=== PATIENT | male | born 1965 | race Caucasian/White ===

== ENCOUNTER 2017-11-30 17:17 | Emergency (ER) | payer OTHER ==
[~2017-11-30] VITALS: Ht 170.1 cm; Wt 77.1 kg
[2017-11-30 17:20] VITALS: BP 156/91
[2017-11-30] MEDS ORDERED: Motrin,Rufen800 MG PO (19:10)
[2017-11-30] MEDS ORDERED: CYCLOBENZAPRINE5 M3 PO (19:10)
== END 2017-11-30 19:18 | disposition home or self-care (01) ==
LOC: ED 17:17 → EDHOLD 18:29 → ED 18:29
DX: S39.012A Strain of muscle, fascia and tendon of lower back, initial encounter (principal); V48.5XXA Car driver injured in noncollision transport accident in traffic accident, initial encounter; Y93.89 Activity, other specified; Y92.413 State road as the place of occurrence of the external cause; Y99.8 Other external cause status

== ENCOUNTER 2018-03-12 19:14 | Emergency (ER) | payer OTHER ==
[~2018-03-12] VITALS: Ht 170.1 cm; Wt 77.1 kg
[~2018-03-12 19:14] MED LIST: CYCLOBENZAPRINE5 M3 PO; Motrin,Rufen800 MG PO
[2018-03-12 20:08] LABS: BASO % 0.6 % (0.0-1.0); EOS % 0.6 % (1.0-4.0); HEMATOCRIT 40.2 % (42.0-52.0); HEMOGLOBIN 13.8 g/dl (14.0-18.0); LYMPH % 20.6 % (27.0-41.0); MEAN CELL VOLUME 104.7 fl (80.0-94.0); MEAN CORPUSCULAR HGB 35.9 pg (27.0-31.0); MEAN CORPUSCULAR HGB CONC 34.3 g/dl (33.0-37.0); MEAN PLATELET VOLUME 11.1 fl (9.6-12.3); MONO # 0.7 10*3/uL (0.1-1.0); MONO % 15.2 % (3.0-9.0); NEUT % 62.8 % (47.0-73.0); PLATELET COUNT AUTOMATED 95 10*3/uL (130-400); RED BLOOD COUNT 3.84 10*6/uL (4.50-5.90); RED CELL DISTRI WIDTH 14.4 % (0-14.5); WHITE BLOOD COUNT 4.8 10*3/uL (4.8-10.8)
[2018-03-12 20:27] LABS: ALBUMIN 3.8 gm/dl (3.1-4.5); ALKALINE PHOSPHATASE 193 U/L (45-117); BUN 6 mg/dl (7-24); CHLORIDE 98 mmol/L (98-107); CPK 178 U/L (39-308); CREATININE 0.87 mg/dL (0.70-1.30); LIPASE 147 U/L (73-393); POTASSIUM 3.6 mmol/L (3.5-5.1); SGOT/AST 97 IU/L (3-35); SGPT/ALT 43 U/L (12-78); SODIUM 133 mmol/L (136-145); TOTAL PROTEIN 7.9 gm/dL (6.4-8.2)
[2018-03-12 20:28] LABS: BILIRUBIN NEGATIVE (NEGATIVE); BLOOD NEGATIVE (NEGATIVE); CLARITY CLEAR (CLEAR); COLOR YELLOW (YELLOW); GLUCOSE NEGATIVE (NEGATIVE); KETONE NEGATIVE (NEGATIVE); LEUKO ESTERASE NEGATIVE (NEGATIVE); NITRITE NEGATIVE (NEGATIVE); PH 6.5 (5.0-9.0); SPECIFIC GRAVITY <= 1.005 (1.005-1.030); UROBILINOGEN 0.2 E.U./dl (0.2-1.0)
[2018-03-12 20:29] LABS: CKMB 0.9 ng/ml (0.5-3.6)
[2018-03-12 20:32] LABS: TROPONIN I < 0.015 ng/ml (<0.045)
[2018-03-12 20:39] LABS: WBC 0-2 wbc/hpf (0-5)
== END 2018-03-12 21:41 | disposition home or self-care (01) ==
LOC: ED 19:14
PROVIDERS: Nurse Practitioner Family
DX: E86.0 Dehydration (principal); R25.2 Cramp and spasm

== ENCOUNTER 2020-07-23 21:32 | Inpatient (IN) | payer OTHER ==
[~2020-07-23] VITALS: Ht 170.1 cm; Wt 88.0 kg
[2020-07-23 21:48] VITALS: BP 143/90
--- NOTE | 2020-07-23 22:42 | NUR ---
PT ADDS THAT HE IS HAVING HALLUCINATIONS AT THIS TIME. STATES THAT HE IS SEEING ANTS.
[2020-07-23 23:24] LABS: HEMATOCRIT 30.5 % (42.0-52.0); MEAN CELL VOLUME 110.1 fl (80.0-94.0); MEAN CORPUSCULAR HGB CONC 35.4 g/dl (33.0-37.0); MEAN PLATELET VOLUME 12.2 fl (9.6-12.3); PLATELET COUNT AUTOMATED 54 10*3/uL (130-400); RED BLOOD COUNT 2.77 10*6/uL (4.50-5.90); RED CELL DISTRI WIDTH 15.8 % (0-14.5); WHITE BLOOD COUNT 4.8 10*3/uL (4.8-10.8)
[2020-07-23 23:45] LABS: ALBUMIN 2.3 gm/dl (3.1-4.5); CREATININE 1.84 mg/dL (0.70-1.30); POTASSIUM 3.1 mmol/L (3.5-5.1)
[2020-07-23 23:53] LABS: BASOPHILS 1 % (0-1); PLATELET SUFFICIENCY LOW (NORMAL); STOMATOCYTE FEW; TOTAL CELLS COUNTED 100 #CELLS; VACUOLATION OF NEUTROPHILS SLIGHT
[2020-07-24] VITALS (10 sets, daily range): BP systolic 80–127; BP diastolic 43–78
[2020-07-24] LABS: TOTAL PROTEIN 6.5 gm/dL (6.4-8.2)
[2020-07-24 00:35] LABS: BILIRUBIN 3+ (Negative); BLOOD Trace-Lysed (Negative); CLARITY Turbid (Clear); COLOR Dark Yellow (Yellow); GLUCOSE Negative (Negative); KETONE Negative (Negative); LEUKO ESTERASE 2+ (Negative); NITRITE Positive (Negative); PH 5.5 (4.5-8.0)
[2020-07-24 00:59] LABS: BACTERIA 3+; WBC TNTC wbc/hpf (0-5)
--- NOTE | 2020-07-24 02:03 | NUR ---
PT GIVEN BOX LUNCH AT THIS TIME. DENIES ANY OTHER NEEDS. WILL CONTINUE TO MONITOR.
--- NOTE | 2020-07-24 02:15 | NUR ---
THIS RN CONTACTED DR MAYNARD ABOUT MEDICATION ORDERS. STATES HE WOULD LIKE MVI BAG GIVEN BEFORE RUNNING KCL. AWAITING NURSE APARTMENT LEASING SPECIALIST TO ARRIVE WITH MEDICATION.
[2020-07-24 02:26] LABS: HEMATOCRIT 29.7 % (42.0-52.0); MEAN CELL VOLUME 110.8 fl (80.0-94.0); MEAN CORPUSCULAR HGB 39.2 pg (27.0-31.0); MEAN CORPUSCULAR HGB CONC 35.4 g/dl (33.0-37.0); MEAN PLATELET VOLUME 13.4 fl (9.6-12.3); PLATELET COUNT AUTOMATED 53 10*3/uL (130-400); RED BLOOD COUNT 2.68 10*6/uL (4.50-5.90); RED CELL DISTRI WIDTH 15.8 % (0-14.5); WHITE BLOOD COUNT 4.7 10*3/uL (4.8-10.8)
[2020-07-24 02:34] LABS: INTERNATIONAL NORM RATIO 1.8 (2.0-3.5)
[2020-07-24 02:45] LABS: BASOPHILS 2 % (0-1); PLATELET SUFFICIENCY LOW (NORMAL); STOMATOCYTE FEW; TOTAL CELLS COUNTED 100 #CELLS; VACUOLATION OF NEUTROPHILS SLIGHT
[2020-07-24 03:05] LABS: ALBUMIN 2.3 gm/dl (3.1-4.5); CREATININE 1.72 mg/dL (0.70-1.30); POTASSIUM 3.5 mmol/L (3.5-5.1)
[2020-07-24 03:13] LABS: TOTAL PROTEIN 6.3 gm/dL (6.4-8.2)
--- NOTE | 2020-07-24 04:00 | NUR ---
ATIVAN PO NOT GIVEN D/T PT BEING SEDATED. PT STATES HE DOES NOT WANT IT AND DOES NOT WANT BOTHERED AT THIS TIME. VSS. AWARE. WILL CONTINUE TO MONITOR.
--- NOTE | 2020-07-24 04:26 | NUR ---
SECOND IV ATTEMPTED.UNABLE TO ESTABLISH SECOND IV SITE AT THIS TIME.PT UNCOOPERATIVE AND REFUSING.
--- NOTE | 2020-07-24 04:35 | NUR ---
AN ATTEMPT TO PLACE A SECOND IV YEILDED UNSUCCESSFUL AT THIS TIME. DR MAYNARD AWARE THAT KCL WILL BE ON HOLD UNTIL MVI BAG IS COMPLETE. PT SELF POSITIONING FOR COMFORT. SAFETY PRECAUTIONS INTACT. CALL LIGHT WITH IN REACH. WILL CONTINUE TO MONITOR.
--- NOTE | 2020-07-24 08:00 | NUR ---
PT AWAKE, ALERT AND ORIENTED. NO STATED COMPLAINTS AT THIS TIME. RESPIRATIONS ARE EASY AND REGULAR ON ROOM AIR. NO SOB NOTED. BED IN LOWEST LOCKED POSITION AND CALL LIGHT WITHIN REACH.
--- NOTE | 2020-07-24 09:00 | NUR ---
MANUAL BLOOD PRESSURE OBTAINED AT THIS TIME. DR. SALINAS IN ROOM AND INFORMED OF BLOOD PRESSURE OF 86/58.
[2020-07-24 10:20] LABS: CREATININE 1.53 mg/dL (0.70-1.30); POTASSIUM 2.6 mmol/L (3.5-5.1)
--- NOTE | 2020-07-24 11:07 | NUR ---
PATIENT FOUND STUMBLING IN ROOM. PT FELL AND HIT HIS HEAD ON THE WALL. CHARGE NURSE, NURSE PHILATELIC CONSULTANT AND DR SALINAS NOTIFIED.
--- NOTE | 2020-07-24 13:14 | NUR ---
FRIEND OF PATIENT CALLED. PATIENT FRIEND GIDEON AND IS IN THE NEXT OF KIN TO SPEAK TO. NOTIFIED HIM THAT PATIENT WAS AWAY FROM HIS ROOM GETTING ADDITIONAL TESTING AT THIS TIME.
--- NOTE | 2020-07-24 13:30 | NUR ---
DR. SANTAMARIA NOTIFIED OF PATIENT'S STATUS. PT STILL ABLE TO ANSWER APPROPRIATELY BUT IS MORE LETHARGIC. DR. SANTAMARIA INTO ROOM.
--- NOTE | 2020-07-24 15:54 | NUR ---
PATIENT DEPENDS HAS BEEN CHANGED AT THIS TIME. NEW ONE PLACED ONTO PATIENT. SHEETS AND BED CHANGED. BED ALARM PLACED BACK ONTO PATIENT. PATIENT RESTING PEACEFULLY IN NO DISTRESS.
--- NOTE | 2020-07-24 18:30 | NUR ---
PATIENT TAKEN TO 5TH FLOOR BY THIS NURSE. NO CHANGE IN STATUS. BEDSIDE REPORT GIVEN TO DANIEL COLMENARES.
--- NOTE | 2020-07-24 18:40 | NUR ---
A 54, admitted to 5E, under the services of MUNDO Clark DO with a diagnosis of UTI,MACROCYTIC ANEMIA,CKD,ELEVATD LIVER FUNCTION ,HPATIC ENCEPAHLOPATHY. Chief complaint is BACK PAIN WHEN 1ST CAME TO ER. Patient arrived via stretcher from ER. Monitor applied. Initial assessment completed. Vital signs taken and recorded. MUNDO CLARK DO notified of admission to the unit. Orders received. See assessment for past medical history, medications and allergies. Patient and/or family oriented to unit. [facility] visitation policy reviewed. Clothing/patient valuable form completed. HEMALATHA TRIPLETT
--- NOTE | 2020-07-24 18:55 | NUR ---
PATIENT NOT ANSWERING QUESTIONS. LR STARTED PER ORDER. PATIENT DROWSY.
[2020-07-24 20:20] LABS: BUN 19 mg/dl (7-24); CHLORIDE 91 mmol/L (98-107); CREATININE 1.15 mg/dL (0.70-1.30); POTASSIUM 2.8 mmol/L (3.5-5.1); SODIUM 127 mmol/L (136-145)
[2020-07-25] VITALS: BP 105/55
--- NOTE | 2020-07-25 07:15 | NUR ---
NOTIFIED DR. MITCHELL OF BASIC RESULTS LAST PM.
[2020-07-25 08:00] VITALS: BP 108/60
--- NOTE | 2020-07-25 08:06 | NUR ---
PATIENT RESTLESS PICKING AT GOWN AND HEART MONITOR DOES NOT FOLLOW COMMANDS.
--- NOTE | 2020-07-25 09:00 | NUR ---
CM in to see patient. He is confused and not able to answer questions appropriately. Will follow up at a later time.
--- NOTE | 2020-07-25 09:05 | NUR ---
Occupational Therapy evaluation received and nurse reports that patient is not appropriated for therapy at this time d/t confusion,reaching in the air for unknown objects, etc. OT will attempt at a later date. Verena Perez OTR/L
--- NOTE | 2020-07-25 09:20 | NUR ---
PHYSICAL THERAPY Pt nimco received and chart reviewed. Attempted to see pt at this time but was disoriented and unable to follow commands. Spoke w primary nurse regarding how pt was doing. Will attempt to see at a later time/date. Jose Alfredo Hernandez SPT Jennifer Hughes PT
[2020-07-25 10:05] LABS: HEMATOCRIT 28.2 % (42.0-52.0); MEAN CELL VOLUME 110.6 fl (80.0-94.0); MEAN CORPUSCULAR HGB 39.2 pg (27.0-31.0); MEAN CORPUSCULAR HGB CONC 35.5 g/dl (33.0-37.0); MEAN PLATELET VOLUME 12.4 fl (9.6-12.3); PLATELET COUNT AUTOMATED 54 10*3/uL (130-400); RED BLOOD COUNT 2.55 10*6/uL (4.50-5.90); RED CELL DISTRI WIDTH 15.6 % (0-14.5)
[2020-07-25 10:22] LABS: ALKALINE PHOSPHATASE 457 U/L (45-117); BUN 15 mg/dl (7-24); CHLORIDE 93 mmol/L (98-107); CREATININE 0.91 mg/dL (0.70-1.30); INTERNATIONAL NORM RATIO 1.8 (2.0-3.5); POTASSIUM 2.9 mmol/L (3.5-5.1); SGOT/AST 390 IU/L (3-35); SGPT/ALT 78 U/L (12-78); SODIUM 131 mmol/L (136-145); TOTAL PROTEIN 5.9 gm/dL (6.4-8.2)
--- NOTE | 2020-07-25 10:45 | NUR ---
Attempted to reach person to notify, Sheron, but the number rings to patient's cell phone. Reached out to next of kin Tolu. Patient lives by himself in a house that has 3 bedrooms. He states the other 2 bedrooms are usually not rented out. If the other 2 bedrooms are rented out everyone shares a bathroom and kitchen. He states he is normally independent in his ADLs and ambulation. He does not have O2 at home. CACHORROK doesn't know who his family doctor is or what pharmacy he uses. He would be able to provide transportation on discharge.
[2020-07-25 10:53] LABS: TOTAL CELLS COUNTED 100 #CELLS
[2020-07-25 10:55] LABS: PLATELET SUFFICIENCY LOW (NORMAL)
[2020-07-25 12:00] VITALS: BP 91/53
--- NOTE | 2020-07-25 15:30 | NUR ---
PATIENT FOUND UNDRESSED HEART MONITOR OFF IV'S PULLED OUT AND BLOOD EVERYWHERE INCLUDING HIS MOUTH. NEW IV SECURED AND KIRLEX,WASHE UP AND CHANGED BED, DR. MITCHELL AWARE AND IN ROOM LOOKING IN PATIENT MOUTH. SOFT WRIST RESTRAINTS APPLIED PER DOCTOR ORDER.
[2020-07-25 15:53] LABS: MEAN CELL VOLUME 111.1 fl (80.0-94.0); MEAN CORPUSCULAR HGB 39.6 pg (27.0-31.0); MEAN CORPUSCULAR HGB CONC 35.7 g/dl (33.0-37.0); MEAN PLATELET VOLUME 12.8 fl (9.6-12.3); PLATELET COUNT AUTOMATED 56 10*3/uL (130-400); RED CELL DISTRI WIDTH 15.9 % (0-14.5); WHITE BLOOD COUNT 4.1 10*3/uL (4.8-10.8)
[2020-07-25 16:00] VITALS: BP 90/58
[2020-07-25 16:14] LABS: PLATELET SUFFICIENCY LOW (NORMAL); ROULEAUX MODERATE; TARGET CELLS FEW; TOTAL CELLS COUNTED 100 #CELLS
--- NOTE | 2020-07-25 17:10 | NUR ---
PATIENT WENT FOR CT AND IS NOW BACK IN ROOM.
[2020-07-25 18:22] LABS: ALBUMIN 2.1 gm/dl (3.1-4.5); BUN 15 mg/dl (7-24); CHLORIDE 94 mmol/L (98-107); CREATININE 0.83 mg/dL (0.70-1.30); POTASSIUM 3.7 mmol/L (3.5-5.1); SODIUM 131 mmol/L (136-145)
[2020-07-25 20:00] VITALS: BP 105/72
--- NOTE | 2020-07-25 20:00 | NUR ---
RESTAINTS IN PLACE PER ORDER. CIRC CHECKS GOOD. FLUIDS OFFERED SPITS OUT. RESTLESS, AGITATED, MOVES ALL OVER BED. ABLE TO GET OUT OF SOFT ARM RESTAINTS.MUMBLES WORDS. WILL CONTINUE TO MONITOR. CALL LIGHT IN REACH.
[2020-07-26] VITALS (9 sets, daily range): BP systolic 97–126; BP diastolic 52–81
--- NOTE | 2020-07-26 | NUR ---
RESTAINTS IN PLACE PER ORDER. CIRC CHECKS GOOD. INCONT. CARE GIVEN. RESTLESS, AGITATED, MOVES ALL OVER BED. ABLE TO GET OUT OF SOFT ARM RESTAINTS.MUMBLES WORDS. WILL CONTINUE TO MONITOR. CALL LIGHT IN REACH.
--- NOTE | 2020-07-26 06:01 | NUR ---
CONTINUES TO PULLING ON WRIST RESTAINTS. REPOSITIONED, INCONT. CARE GIVEN, FLUIDS OFFERED SPITS THEM OUT. WILL NOT LET STAFF CLEAN MOUTH, BITES DOWN. COMBATIVE. 1:1 AND REDIRECTION INEFFECTIVE. IV PULLED OUT. CIRC. CHECKS GOOD. ALL SAFETY MEASURES IN PLACE. CALL LIGHT IN REACH. NOTIFIED THAT IV IS OUT AGAIN. DOES NOT WANT A LINE IN AT THIS TIME.
[2020-07-26 06:54] LABS: HEMATOCRIT 29.4 % (42.0-52.0); MEAN CELL VOLUME 111.8 fl (80.0-94.0); MEAN CORPUSCULAR HGB 39.5 pg (27.0-31.0); MEAN CORPUSCULAR HGB CONC 35.4 g/dl (33.0-37.0); MEAN PLATELET VOLUME 12.3 fl (9.6-12.3); NUCLEATED RED BLOOD CELL 0.4 % (0.0-0.0); PLATELET COUNT AUTOMATED 63 10*3/uL (130-400); RED BLOOD COUNT 2.63 10*6/uL (4.50-5.90); RED CELL DISTRI WIDTH 15.9 % (0-14.5); WHITE BLOOD COUNT 5.1 10*3/uL (4.8-10.8)
[2020-07-26 07:24] LABS: ALBUMIN 2.2 gm/dl (3.1-4.5); ALKALINE PHOSPHATASE 466 U/L (45-117); BUN 11 mg/dl (7-24); CHLORIDE 95 mmol/L (98-107); CREATININE 0.74 mg/dL (0.70-1.30); SGOT/AST 364 IU/L (3-35); SGPT/ALT 84 U/L (12-78)
--- NOTE | 2020-07-26 07:30 | NUR ---
PT SLEEPING. RESPS EASY AND NON LABORED. NO S/S OF DISTRESS NOTED. VSS. WHITE BOARD UPDATED. DRY BLOODY DRAINAGE NOTED ON INSIDE OF MOUTH. PER LAST SHIFT RN PT WAS EXTREMELY COMBATIVE-SPITTING AND BITING HIS OWN TOUNGE AND REFUSED ANY KIND OF ORAL CARE. PT IS NOTED TO BE JAUNDICED. NO IV ACCESS-DR AWARE. WILL LET PATIENT REST. WILL CONTINUE TO MONITOR. FALL AND SKIN PRECUATIONS MAINTAINED. CALL LIGHT WITHIN REACH.
[2020-07-26 07:43] LABS: SODIUM 131 mmol/L (136-145)
[2020-07-26 07:46] LABS: POTASSIUM 2.7 mmol/L (3.5-5.1); TOTAL PROTEIN 6.1 gm/dL (6.4-8.2)
--- NOTE | 2020-07-26 07:49 | NUR ---
DR CORTEZ NOTIFIED OF CRITICAL TOTAL BILIRUBIN OF 24. NO NEW ORDERS AT THIS TIME.
[2020-07-26 07:55] LABS: TOTAL CELLS COUNTED 100 #CELLS
[2020-07-26 07:56] LABS: PLATELET SUFFICIENCY LOW (NORMAL)
[2020-07-26 08:51] LABS: BUN 11 mg/dl (7-24); CHLORIDE 96 mmol/L (98-107); CREATININE 0.68 mg/dL (0.70-1.30); POTASSIUM 2.5 mmol/L (3.5-5.1); SODIUM 133 mmol/L (136-145)
--- NOTE | 2020-07-26 09:19 | NUR ---
DR GALICIA NOTIFIED OF NEW CONSULT. NO NEW ORDERS AT THIS TIME.
--- NOTE | 2020-07-26 09:55 | NUR ---
PT FRIEND CALLED IN.PASSWORD PROVIDED. UPDATED ON POC. QUESTIONS ANSWERED.
--- NOTE | 2020-07-26 10:46 | NUR ---
PER DR GALICIA, PT IS TO BE TRANSFERRED TO ICCU AND INTUBATED FOR FURTHER CARE MANAGEMENT. DR CORTEZ AND BALE COVERER NOTIFIED.
--- NOTE | 2020-07-26 10:49 | NUR ---
DR MEDINA AWARE OF NEW CONSULT. PT WILL BE TRANSFERRED TO ICCU BED 10
--- NOTE | 2020-07-26 10:56 | NUR ---
NO FAMILY LISTED TO CONTACT REGARDING PT TRANSFER/CONDITION. PER NOTED THERE IS NO NEXT OF KIN
--- NOTE | 2020-07-26 14:00 | NUR ---
PT ARRIVED FROM 5E OBTUNDED, UNABLE TO ANSWER ANY QUESTIONS OR FOLLOW ANY COMMANDS. HIS MOUTH WAS BLOODY. HE ARRIVED WITH NO IV SITE. AFTER SEVERAL UNSUCCESSFUL ATTEMPTS A #20 WAS PLACED IN RT FOREARM. PT WAS GIVEN ETOMADATE, SUCCINYLCHOLINE AND PROPOFOL FOR INTUBATION WITH A SIZE [address] CORTEZ, USING THE GLIDESCOPE. THERE WAS A PERSISTENT AIR LEAK THIS WAS CHANGED OVER A BOUGIE TUBE CHANGER TO AN 8.5 ETT. AN OGT WAS PLACED ALSO AT THAT TIME. ATTEMPTED TO PLACE PEREZ CATHETER BUT IT TURNED BACK ON ITSELF AND CAME OUT OF THE URINARY MEATUS DOUBLED. SOME BLEEDING FROM MEATUS AFTER THIS. STAT CXR WAS DONE. THE MEDICAL TEAM IS COMING BACK TO PLACE A MLC.
--- NOTE | 2020-07-26 15:32 | NUR ---
A 14 COUDE CATHETER WAS PLACED EASILY AND IS DRAINING TEA COLORED URINE. MEDICAL TEAM IS HERE PLACING MLC. PT IS CURRENTLY ADEQUATELY SEDATED ON DIPRIVAN DRIP AT 40MCG/KG/MIN.
[2020-07-26 16:06] LABS: ABG BASE EXCESS 7.9 mmol/L (-2.0-2.0); ARTERIAL BLOOD GAS PH 7.54 (7.35-7.45)
--- NOTE | 2020-07-26 16:51 | NUR ---
DECREASED TO 450CC PER DR. MEDINA.
--- NOTE | 2020-07-26 17:02 | NUR ---
DR JUAREZ HAS VISITED. REVIEW OF LABS AND ORDERS AND HE ENTERED ORDERS. ABG'S WERE DONE AND CALLED TO DR MEDINA. ORDERS WERE RECEIVED AND VENT CHANGES MADE. COMPLETE BED BATH GIVEN WITH ORAL CARE STARTED.
[2020-07-26 19:06] LABS: ABG BASE EXCESS 3.5 mmol/L (-2.0-2.0); ARTERIAL BLOOD GAS PH 7.479 (7.35-7.45)
--- NOTE | 2020-07-26 20:53 | NUR ---
1930 RESTING IN BED WITH HOB ELEVATED. SIDE RAILS UP X'S 2. NPO. ORAL CARE DONE. PULSE OX 100% ON 50% FIO2 VAI VENT. RIJ MLC INTACT. DIPRIVAN GTT MAINTAINED AT 40MICS. COLOR REMAINS VERY JAUNDICED. WRIST RESTRAINTS INTACT BILATERALLY. CIRULATION ADEQUATE. PEREZ PATENT AND DRAINING TEA COLORED URINE. NO DISTRESS NOTED.
[2020-07-27] VITALS (67 sets, daily range): BP systolic 73–117; BP diastolic 34–70
--- NOTE | 2020-07-27 00:40 | NUR ---
REPOSITIONED Q2H. PULSE OX 99% ON 40% FIO2 VIA VENT. DIPRIVAN CONT AT 40MICS
[2020-07-27 05:27] LABS: ALBUMIN 1.9 gm/dl (3.1-4.5); ALKALINE PHOSPHATASE 431 U/L (45-117); BUN 11 mg/dl (7-24); CHLORIDE 99 mmol/L (98-107); CREATININE 0.83 mg/dL (0.70-1.30); POTASSIUM 2.7 mmol/L (3.5-5.1); SGOT/AST 311 IU/L (3-35); SGPT/ALT 73 U/L (12-78); SODIUM 135 mmol/L (136-145); TOTAL PROTEIN 5.5 gm/dL (6.4-8.2)
[2020-07-27 06:06] LABS: HEMATOCRIT 29.1 % (42.0-52.0); MEAN CELL VOLUME 112.8 fl (80.0-94.0); MEAN CORPUSCULAR HGB 39.5 pg (27.0-31.0); MEAN CORPUSCULAR HGB CONC 35.1 g/dl (33.0-37.0); MEAN PLATELET VOLUME 12.3 fl (9.6-12.3); NUCLEATED RED BLOOD CELL 0.4 % (0.0-0.0); PLATELET COUNT AUTOMATED 56 10*3/uL (130-400); RED BLOOD COUNT 2.58 10*6/uL (4.50-5.90); RED CELL DISTRI WIDTH 16.4 % (0-14.5); WHITE BLOOD COUNT 5.2 10*3/uL (4.8-10.8)
--- NOTE | 2020-07-27 06:17 | NUR ---
DIPRIVAN TITRATED DOWN TO 30MICS. SYS BP 96. SKIN W/D. WILL CONT TO MONITOR. ET SECURE TOVENT. PULSE OX 98%. RIJ MLC INTACT. COLOR REMAINS VERY JAUNDICED. CONDITION GUARDED.
--- NOTE | 2020-07-27 07:27 | NUR ---
Shift chart check completed.24 HR chart check completed.
[2020-07-27 07:59] LABS: BASOPHILS 1 % (0-1); PLATELET SUFFICIENCY LOW (NORMAL); ROULEAUX MODERATE; TARGET CELLS FEW; TOTAL CELLS COUNTED 100 #CELLS
[2020-07-27 08:15] LABS: ABG BASE EXCESS 3.7 mmol/L (-2.0-2.0); ARTERIAL BLOOD GAS PH 7.504 (7.35-7.45)
--- NOTE | 2020-07-27 10:28 | NUR ---
ON ASSESSMENT PATIENT WAS SEDATED ON DIPRIVAN AT 30MCG/KG/MIN. HIS MANUAL BP WAS 80/40. DIPRIVAN WAS SUSPENDED FOR OVER ONE HOUR UNTIL HE WOULD OPEN HIS EYES TO HIS NAME BUT COULDN'T GET HIM TO FOLLOW ANY COMMANDS. LEVOPHED HAS BEEN STARTED AT 4MCG/MIN,THEN 8MCG/MIN, THEN 16MCG/MIN. PEREZ PATENT SMALL AMOUNT OF DK TEA COLORED URINE. SCD'S IN PLACE. K+ AND PHOSPHOROUS LOW AND SUPPLEMENTS HAVE BEEN GIVEN. PULMOCARE AT 20ML/HR. SEE ALL APPROPRIATE INTERVENTIONS.
--- NOTE | 2020-07-27 12:20 | NUR ---
DR MEDINA HAS VISITED. MAP >65 WITH LEVOPHED AT 16MCG/MIN. DIPRIVAN IS AT 15MCG/K/MIN.
--- NOTE | 2020-07-27 17:33 | NUR ---
REPOSITIONED. PROPOFOL DOWN TO 10MCG/KG/MIN AND LEVOPHED UP TO 15MCG/KG/MIN.
--- NOTE | 2020-07-27 20:00 | NUR ---
PT SWIM MANEUVER ARMS AND HEAD TURNED WITH RN. PILLOW IN PLACE TUBE SECURE. OPTIFOAM PLACED UNDER TUBE FLOREZ WHERE PLASTIC PIECES ARE. SUCTIONED FOR THICK YELLOW
--- NOTE | 2020-07-27 20:46 | NUR ---
5 RESTING IN BED WITH HOB ELEVATED. SIDE RAILS UP X'S 2. NPO. COLOR REMAINS VERY JAUNDICED. ORAL CARE DONE. SUCTIONED VIA ET AND OFALLY FOR BLOOD TINGED SPUTUM. RIJ MLC INTACT. DIPRIVAN GTT CONT. LEVOPHED GTT CONT. WRIST RESTRAINTS INTACT BILATERALLY. CIRCULATION ADEQUATE. PEREZ PATENT AND DRAINING TEA COLORED URINE.
--- NOTE | 2020-07-27 22:12 | NUR ---
LEVOPHED TITRATE UP FOR CONT HYPOTENSION. WILL CONT TO MONITOR.
--- NOTE | 2020-07-27 23:35 | NUR ---
2310 COMPLETE BED BATH GIVEN AND LINENS CHANGED. REPOSITIONED.
[2020-07-28] VITALS (96 sets, daily range): BP systolic 91–156; BP diastolic 3–79
--- NOTE | 2020-07-28 00:19 | NUR ---
ARMS SWITCHED AND HEAD TURN. TUBE IS SECURE SUCTINED FOR THICK YELLOW.
--- NOTE | 2020-07-28 02:04 | NUR ---
REMAINS ADEQUATELY SEDATED ON DIPRIVAN AT 15MICS. LEVOPHED GTT CONT.
[2020-07-28 04:40] LABS: HEMATOCRIT 30.9 % (42.0-52.0); MEAN CELL VOLUME 112.8 fl (80.0-94.0); MEAN CORPUSCULAR HGB 39.1 pg (27.0-31.0); MEAN CORPUSCULAR HGB CONC 34.6 g/dl (33.0-37.0); MEAN PLATELET VOLUME 11.7 fl (9.6-12.3); NUCLEATED RED BLOOD CELL 0.2 % (0.0-0.0); RED BLOOD COUNT 2.74 10*6/uL (4.50-5.90); RED CELL DISTRI WIDTH 16.9 % (0-14.5); WHITE BLOOD COUNT 12.1 10*3/uL (4.8-10.8)
[2020-07-28 04:51] LABS: ALBUMIN 1.9 gm/dl (3.1-4.5); ALKALINE PHOSPHATASE 471 U/L (45-117); BUN 11 mg/dl (7-24); CHLORIDE 102 mmol/L (98-107); CREATININE 1.07 mg/dL (0.70-1.30); POTASSIUM 2.7 mmol/L (3.5-5.1); SGOT/AST 284 IU/L (3-35); SGPT/ALT 68 U/L (12-78); SODIUM 135 mmol/L (136-145); TOTAL PROTEIN 5.8 gm/dL (6.4-8.2)
[2020-07-28 05:21] LABS: PLATELET COUNT AUTOMATED 102 10*3/uL (130-400)
[2020-07-28 05:23] LABS: BASOPHILS 1 % (0-1); TOTAL CELLS COUNTED 100 #CELLS
[2020-07-28 05:24] LABS: PLATELET SUFFICIENCY LOW (NORMAL); ROULEAUX MODERATE; TARGET CELLS FEW
--- NOTE | 2020-07-28 06:15 | NUR ---
REPOSITIONED ON BACK. WRIST RESTRAINTS INTACT BILATERALLY. DIPRIVAN AND LEVOPHED GTTS CONT. SEE INTERVENTION SCREEN FOR Q15MIN BP'S. CONDITION GUARDED.
--- NOTE | 2020-07-28 07:45 | NUR ---
PHYSICAL THERAPY [facility] due to aggiation declining medical status need for intubation for medical care per MD notes. Will need new PT orders when/if pt medically approppriate, thank you Jennifer Hughes PT
--- NOTE | 2020-07-28 08:23 | NUR ---
Patient transferred to ICCU d/t a decline in medical status before he was appropriate for OT evaluation. Patient will need a new OT referral when appropriate for therapy. Verena Perez OTR/l
[2020-07-28 08:40] LABS: ABG BASE EXCESS 1.1 mmol/L (-2.0-2.0); ARTERIAL BLOOD GAS PH 7.481 (7.35-7.45)
--- NOTE | 2020-07-28 09:00 | NUR ---
CM in to see patient. He is currently intubated. CM will continue to follow for any discharge planning needs.
--- NOTE | 2020-07-28 09:30 | NUR ---
DR. MEDINA HERE AND UPDATED ON PATIENT'S CONDITION
--- NOTE | 2020-07-28 14:00 | NUR ---
TURNED AND REPOSITIONED ONTO BACK. SUCTIONED MOUTH AND THERE IS BRIGHT RED BLOOD AROUND GUMS AND ON TONGUE. LUNGS CLEAR BILATERALLY. ENDOTUBE INTACT WITH PULMOCARE INFUSING AT 20CC/HR. LEVOPHED GTT INFUSING AT 15 RICK'S AND DIPRIVAN GTT AT 20 RICK'S VIA RIJ MLC. PEREZ DRAINING DARK TEA COLORED/YELLOW URINE. SCD'S INTACT TO BILATERAL LOWER LEGS. PULSE OX ON VENT 97%. NSR ON HEART MONITOR. HEART RATE 80-90'S
--- NOTE | 2020-07-28 15:30 | NUR ---
ORDERS REC'D FROM DR MEDINA AND CARRIED OUT. COVID TEST SENT TO LAB ORDERED. (PT POSSIBLE EXPOSURE FROM FRIEND) SANTO SHIN RN
--- NOTE | 2020-07-28 15:40 | NUR ---
MORIAH ON HOLD ORDERED. SANTO SHIN RN
--- NOTE | 2020-07-28 15:50 | NUR ---
CALLED CHELSEA GARCIA REGARDING [employer]. SHE WILL FIND OUT WHO IS INVOLVED AND SHE WILL NOTIFY US TOMORROW
--- NOTE | 2020-07-28 16:45 | NUR ---
TALKED WITH NORIS DIEGO, FRIEND OF GIDEON QUIROZ. MS. DIEGO STATES, SHE AND GIDEON VELASCO ARE THE ONLY FRIENDS IN CONTACT WITH PATIENT. NO FAMILY MEMBERS OTHER THAN 2 MINOR CHILDREN OUT OF STATE AND A EX . BEEN SINCE 2013. MS DIEGO EXPRESSED INTEREST IN TALKING WITH [employer] [facility]O: POA FOR HEALTHCARE. SANTO SHIN RN
--- NOTE | 2020-07-28 20:48 | NUR ---
RECTAL TEMP OF 101 RECTALLY. TYLENOL 650MG SUPPOSITORY ADMINISTERED. LARGE AMOUNT OF BROWN SPUTUM SUCTIONED FROM ENDOTUBE AND MOUTH. >80CC OF TUBE FEEDING ASPIRATED FROM OG WHILE CHECKING PLACEMENT AND PLACED ON HOLD. TRANSFERRED FROM ICCU 10 TO ICCU 3 WITH HEPA FILTER IN PLACE R/T POSSIBLE COVID-19 EXPOSURE. PLACED ON CPAP AT 2000 AND TOLERATING WELL DESPITE EXTREME DECREASE IN ALERTNESS. LEVAPHED GTT AT 15MCS WITH A BP OF 134/78 AND MAP OF 87.
[2020-07-28 22:20] LABS: ABG BASE EXCESS 0.1 mmol/L (-2.0-2.0); ARTERIAL BLOOD GAS PH 7.453 (7.35-7.45)
[2020-07-29] VITALS (96 sets, daily range): BP systolic 11–144; BP diastolic 45–759
--- NOTE | 2020-07-29 03:08 | NUR ---
MORIAH GTT BACK ON AT THIS TIME, PATIENT KICKING LEGS ABOUT IN BED AND HAS EYES WIDE OPEN. FOLLOWS COMMANDS TO SQUEEZE HAND BUT THATS ALL.
[2020-07-29 06:02] LABS: HEMATOCRIT 30.3 % (42.0-52.0); MEAN CELL VOLUME 113.9 fl (80.0-94.0); MEAN CORPUSCULAR HGB 39.1 pg (27.0-31.0); MEAN CORPUSCULAR HGB CONC 34.3 g/dl (33.0-37.0); MEAN PLATELET VOLUME 11.4 fl (9.6-12.3); NUCLEATED RED BLOOD CELL 0.2 % (0.0-0.0); PLATELET COUNT AUTOMATED 80 10*3/uL (130-400); RED BLOOD COUNT 2.66 10*6/uL (4.50-5.90); RED CELL DISTRI WIDTH 16.7 % (0-14.5); WHITE BLOOD COUNT 11.3 10*3/uL (4.8-10.8)
[2020-07-29 06:11] LABS: ALBUMIN 1.8 gm/dl (3.1-4.5); BUN 10 mg/dl (7-24); CHLORIDE 104 mmol/L (98-107); SODIUM 138 mmol/L (136-145)
[2020-07-29 06:15] LABS: ALKALINE PHOSPHATASE 446 U/L (45-117); CREATININE 0.84 mg/dL (0.70-1.30); SGOT/AST 220 IU/L (3-35); SGPT/ALT 58 U/L (12-78); TOTAL PROTEIN 5.5 gm/dL (6.4-8.2)
[2020-07-29 06:30] LABS: POTASSIUM 2.3 mmol/L (3.5-5.1)
--- NOTE | 2020-07-29 06:30 | NUR ---
DR SAM CALLED WITH [facility], STATES HE WILL PUT ORDER IN
[2020-07-29 07:22] LABS: BASOPHILS 2 % (0-1); OVALOCYTES FEW; PLATELET SUFFICIENCY LOW (NORMAL); POLYCHROMASIA SLIGHT; TARGET CELLS FEW; TOTAL CELLS COUNTED 100 #CELLS
[2020-07-29 08:04] LABS: ARTERIAL BLOOD GAS PH 7.437 (7.35-7.45)
--- NOTE | 2020-07-29 09:45 | NUR ---
DIPRIVAN GTT TURNED OFF, WHEN AWAKE PLACE ON C-PAP
--- NOTE | 2020-07-29 10:38 | NUR ---
SPOKE WITH GIDEON VELASCO REGARDING CODE STATUS. HE IS LISTED NEXT OF KIN. HE DOES HAVE AN EX- IN [place] WITH 2 CHILDREN AGES 14 AND 17. NEXT OF KIN WISHES FOR PATIENT TO BE A DNR-CC
--- NOTE | 2020-07-29 12:25 | NUR ---
SEDATION HAD BEEN LIFTED A FEW HRS. PT MORE AWAKE. THEREFORE, MODE CHANGED TO CPAP OF 5 AND PSV OF 10. FIO2 DECREASED TO 30% PER DR MEDINA. PT TOLERATING WELL. RESPS REGULAR AND UNLABORED AT 28-30. SPO2 96% ABG TO FOLLOW IN 2 HRS.
--- NOTE | 2020-07-29 15:00 | NUR ---
Spoke with friend Sheron regarding patient's condition. She was updated on patient's progress and plan of care.
[2020-07-29 15:11] LABS: ABG BASE EXCESS -0.1 mmol/L (-2.0-2.0); ARTERIAL BLOOD GAS PH 7.461 (7.35-7.45)
--- NOTE | 2020-07-29 16:00 | NUR ---
Dr. Arias notified of abg results. Remains drowsy. Not opening eyes on command. Is moving his arms and legs. Plans to remain on C-pap as this time.
--- NOTE | 2020-07-29 18:00 | NUR ---
RECTAL TUBE PLACED WITH RETURN OF GREEN LIQUID SMALL
--- NOTE | 2020-07-29 19:49 | NUR ---
PATIENT GIVEN ATIVAN AND VERSED FOR AGITATION PATIENT MOVING AROUND IN BED DOCTOR CAROL MADE AWARE AND THAT PATIENTS RATE WAS 40.
--- NOTE | 2020-07-29 23:16 | NUR ---
PATIENT PULLING AND SHAKING HIS HEAD PATIENT DOES NOT FOLLOW VERBAL COMMANDS
[2020-07-30] VITALS (96 sets, daily range): BP systolic 93–137; BP diastolic 49–79
--- NOTE | 2020-07-30 03:52 | NUR ---
PATIENT GETTING WASHED UP PATIENT GIVEN ATIVAN AND VERSED TO HELP HIM RELAX. DURING MOVEMENT. AND TO KEEP RESP RATE DOWN.
[2020-07-30 05:12] LABS: ALBUMIN 1.7 gm/dl (3.1-4.5); ALKALINE PHOSPHATASE 429 U/L (45-117); BUN 11 mg/dl (7-24); CHLORIDE 108 mmol/L (98-107); CREATININE 0.96 mg/dL (0.70-1.30); POTASSIUM 2.7 mmol/L (3.5-5.1); SGOT/AST 187 IU/L (3-35); SGPT/ALT 56 U/L (12-78); SODIUM 140 mmol/L (136-145); TOTAL PROTEIN 5.5 gm/dL (6.4-8.2)
[2020-07-30 06:12] LABS: HEMATOCRIT 31.1 % (42.0-52.0); MEAN CELL VOLUME 115.6 fl (80.0-94.0); MEAN CORPUSCULAR HGB 39.4 pg (27.0-31.0); MEAN CORPUSCULAR HGB CONC 34.1 g/dl (33.0-37.0); NUCLEATED RED BLOOD CELL 0.1 10*3/uL (0.0-0.0); NUCLEATED RED BLOOD CELL 0.5 % (0.0-0.0); PLATELET COUNT AUTOMATED 88 10*3/uL (130-400); RED BLOOD COUNT 2.69 10*6/uL (4.50-5.90); RED CELL DISTRI WIDTH 16.7 % (0-14.5); WHITE BLOOD COUNT 10.9 10*3/uL (4.8-10.8)
[2020-07-30 07:40] LABS: TOTAL CELLS COUNTED 100 #CELLS
[2020-07-30 07:41] LABS: PLATELET SUFFICIENCY LOW (NORMAL)
[2020-07-30 08:23] LABS: ABG BASE EXCESS -0.7 mmol/L (-2.0-2.0); ARTERIAL BLOOD GAS PH 7.467 (7.35-7.45)
--- NOTE | 2020-07-30 09:00 | NUR ---
TURNED AND REPOSITIONED ONTO LEFT SIDE. DOES NOT AROUSE TO NAME BEING CALLED. RIJ MLC INTACT WITH LEVOPHED GTT RUNNING AT 10 RICK'S. RECTAL TUBE INTACT AND PEREZ DRAINING DARK MADIE/YELLOW URINE. OGT INFUSING PULMOCARE AT 20CC/HR.
--- NOTE | 2020-07-30 10:00 | NUR ---
DR. MEDINA HERE TO SEE PATIENT AND UPDATED ON PATIENT'S CONDITION. NEW ORDERS RECEIVED
--- NOTE | 2020-07-30 21:20 | NUR ---
PT. RESTING IN BED. LEVOPHED INFUSING ORDERED VIA RIJ MLC. HEP LOCK IN RAN ASYMPT. LUNGS DIMINISHED BILAT, PULSE OX 97% ON 30% FIO2. ABDOMEN SOFT NONDISTENDED AND NORMO. NO PERIPHERAL EDEMA NOTED. PULMOCARE TF INFUSING VIA OGT, NO RESIDUAL NOTED. PEREZ CATHETER DRAINING A DARK TEA COLORED URINE. SKIN REMAINS GLOWING YELLOW. RECTAL TUBE DRAINING A BROWN LIQUID. PT. GIVEN ORAL MOUTH CARE AND SUCTIONED FOR MODERATE AMT OF YELLOW MUCOUS VIA ENDO AND CLEAR ORALLY. PT. REPOSITONED FOR COMFORT AND TO MAINTAIN SKIN INTEGRITY. LOW PETER RN
[2020-07-31] VITALS (61 sets, daily range): BP systolic 113–162; BP diastolic 47–89
[2020-07-31 05:55] LABS: BUN 12 mg/dl (7-24); CHLORIDE 110 mmol/L (98-107); POTASSIUM 2.9 mmol/L (3.5-5.1); SODIUM 138 mmol/L (136-145)
[2020-07-31 05:59] LABS: ALKALINE PHOSPHATASE 415 U/L (45-117); BUN 13 mg/dl (7-24); CHLORIDE 109 mmol/L (98-107); CREATININE 0.77 mg/dL (0.70-1.30); POTASSIUM 2.9 mmol/L (3.5-5.1); SGOT/AST 156 IU/L (3-35); SGPT/ALT 48 U/L (12-78); SODIUM 140 mmol/L (136-145); TOTAL PROTEIN 5.7 gm/dL (6.4-8.2)
[2020-07-31 06:16] LABS: HEMATOCRIT 30.7 % (42.0-52.0); MEAN CELL VOLUME 115.4 fl (80.0-94.0); MEAN CORPUSCULAR HGB 38.7 pg (27.0-31.0); MEAN CORPUSCULAR HGB CONC 33.6 g/dl (33.0-37.0); MEAN PLATELET VOLUME 11.6 fl (9.6-12.3); NUCLEATED RED BLOOD CELL 0.2 % (0.0-0.0); PLATELET COUNT AUTOMATED 84 10*3/uL (130-400); RED BLOOD COUNT 2.66 10*6/uL (4.50-5.90); RED CELL DISTRI WIDTH 16.3 % (0-14.5); WHITE BLOOD COUNT 9.8 10*3/uL (4.8-10.8)
[2020-07-31 07:10] LABS: BASOPHILS 2 % (0-1); POLYCHROMASIA SLIGHT; TOTAL CELLS COUNTED 100 #CELLS
[2020-07-31 07:11] LABS: PLATELET SUFFICIENCY LOW (NORMAL); ROULEAUX MODERATE
--- NOTE | 2020-07-31 07:56 | NUR ---
PHYSICAL THERAPY Patient remains intubated, ethics committe meeting yesterday patient's code status changed to DNR. Will discontinue PT orders at this time, please reconsult Physical Therapy as/if patient's medical status improves, thank you Jennifer Hughes PT
--- NOTE | 2020-07-31 08:00 | NUR ---
ASSESSEMTN DONE - ETT WITH 25 AT LIP SECURE. VERY LARGE AMOUNTS OF THICK YELLOW/BROWN BILE COLORED SPUTUM THAT CONTINUOUSLY FILLS THE HME..OGT PLACEMENT CONFIRMED WITH AIR BOLUS THEN IRRIGATED WITH AM MEDS. FEEDING AT 40. PEREZ PATENT FOR DK BILIRUBIN COLORED URINE. RECTAL PEREZ SECURE FOR LIQUID BRWON/YELLOW. RESTRAINTS ON FOR SAFETY - NO SEDATION. KIRILL, + GAG REFLEX, MOVES ARMS BUT NO PURPOSEFUL. ECCHYMOTIC TO BUE. LEVOPHED DRIP INFUSING
--- NOTE | 2020-07-31 08:08 | NUR ---
DR MEDINA CALLED ABOUT LAB RESULTS - ORDERS RECEIVED
[2020-07-31 08:30] LABS: ABG BASE EXCESS -0.7 mmol/L (-2.0-2.0); ARTERIAL BLOOD GAS PH 7.457 (7.35-7.45)
--- NOTE | 2020-07-31 10:00 | NUR ---
DR MEDINA & DR SANTAMARIA ROUNDED. ORDERS RECEIVED AFTER CASE REVIEWED
--- NOTE | 2020-07-31 12:31 | NUR ---
Received call from friend, Tolu, regarding the possibility of patient having a living will at [facility] in [place], [place]. He states patient lived in that area for over 30 years and his ex- believes he may have completed a living will there. sheet ironworker reached out to their medical records department for DPOAH or living will paperwork.
--- NOTE | 2020-07-31 15:39 | NUR ---
PATIENT LEFT VIA AMBULANCE WITH LEVOPHED & KPHOS DRIPS INFUSING. K-RUNS COMPLETED. OGT REMAINS INTACT WITH TUBE FEEDING COMPLETED. ETT SECURE, PEREZ & RECTAL PEREZ PATENT..
--- NOTE | 2020-07-31 15:54 | NUR ---
REPORT TO LIBORIO AT [facility] [phone]..
--- NOTE | 2020-07-31 16:06 | NUR ---
2ND MESSAGE LEFT FOR FRIEND ABOUT TRANSFER - ALREADY HAD GIVEN HER ALL THE INFORMATIONS
== END 2020-07-31 16:06 | disposition short-term general hospital (02) | DRG 279 ==
LOC: ED 21:32 → ICCU 07-24 01:16 → EDHOLD 07-24 01:16 → 5E 07-24 01:16 → ICCU 07-26 11:16
PROVIDERS: Family Medicine; Internal Medicine; Internal Medicine Critical Care Medicine; Social Worker Clinical; Student in an Organized Health Care Education/Training Program; ADMIT Internal Medicine; ATTEND Internal Medicine
PROC: 02HV33Z Insertion of Infusion Device into Superior Vena Cava, Percutaneous Approach (ICD-10-PCS; principal; 2020-07-26)
PROC: 0BH17EZ Insertion of Endotracheal Airway into Trachea, Via Natural or Artificial Opening (ICD-10-PCS; 2020-07-26)
PROC: 5A1955Z Respiratory Ventilation, Greater than 96 Consecutive Hours (ICD-10-PCS; 2020-07-26)
PROC: B548ZZA Ultrasonography of Superior Vena Cava, Guidance (ICD-10-PCS; 2020-07-26)
DX: K72.90 Hepatic failure, unspecified without coma (principal); N39.0 Urinary tract infection, site not specified; E87.1 Hypo-osmolality and hyponatremia; E87.6 Hypokalemia; D53.9 Nutritional anemia, unspecified; E43 Unspecified severe protein-calorie malnutrition; R00.0 Tachycardia, unspecified; Z66 Do not resuscitate; Z51.5 Encounter for palliative care; N17.0 Acute kidney failure with tubular necrosis; K70.31 Alcoholic cirrhosis of liver with ascites; E87.8 Other disorders of electrolyte and fluid balance, not elsewhere classified; N18.32 Chronic kidney disease, stage 3b; J98.11 Atelectasis; D69.59 Other secondary thrombocytopenia; I95.9 Hypotension, unspecified; I12.9 Hypertensive chronic kidney disease with stage 1 through stage 4 chronic kidney disease, or unspecified chronic kidney disease; E87.3 Alkalosis; E83.39 Other disorders of phosphorus metabolism; E83.42 Hypomagnesemia; J96.01 Acute respiratory failure with hypoxia; K92.2 Gastrointestinal hemorrhage, unspecified; E66.9 Obesity, unspecified; G31.2 Degeneration of nervous system due to alcohol; E72.20 Disorder of urea cycle metabolism, unspecified; F10.939 Alcohol use, unspecified with withdrawal, unspecified; Z20.828 Contact with and (suspected) exposure to other viral communicable diseases; Z68.30 Body mass index [BMI] 30.0-30.9, adult; R65.11 Systemic inflammatory response syndrome (SIRS) of non-infectious origin with acute organ dysfunction